=== PATIENT | female | born 1980 | race Caucasian/White ===

== ENCOUNTER 2017-09-14 10:56 | Emergency (ER) | payer OTHER ==
[~2017-09-14] VITALS: Ht 160 cm; Wt 59.5 kg
[2017-09-14 11:02] VITALS: BP 121/90
--- NOTE | 2017-09-14 11:25 | NUR ---
37/F C/O MID CHEST PAIN, PALPITATIONS INTERMITTENTLY X1WK . DENIES N/V/D; SKIN IS PINK/WARM/DRY; AAOX4 WITH EVEN AND STEADY GAIT; LUNGS CLEAR BL; PT DENIES ANY FEVER, CP, SOB, OR COUGH AT THIS TIME; PATIENT STATES PAIN OF 0/10 AT THIS TIME; PATIENT POSITIONED FOR COMFORT; HOB ELEVATED; BEDRAILS UP X2; BED DOWN. ER MD MADE AWARE OF PT STATUS.
--- NOTE | 2017-09-14 11:30 | NUR ---
Patient being evaluated by DR LING at bedside.
--- NOTE | 2017-09-14 11:36 | NUR ---
Note undone in EDM - 09/14/17 at 1137 by [email or web address] 37/F C/O MID CHEST PAIN, PALPITATIONS INTERMITTENTLY X1WK . DENIES N/V/D; SKIN IS PINK/WARM/DRY; AAOX4 WITH EVEN AND STEADY GAIT; LUNGS CLEAR BL; PT DENIES ANY FEVER, CP, SOB, OR COUGH AT THIS TIME; PATIENT STATES PAIN OF 0/10 AT THIS TIME; PATIENT POSITIONED FOR COMFORT; HOB ELEVATED; BEDRAILS UP X2; BED DOWN. ER MD MADE AWARE OF PT STATUS.
[2017-09-14 11:43] VITALS: BP 119/87
--- NOTE | 2017-09-14 11:43 | NUR ---
Patient discharged with v/s stable. Written and verbal after care instructions given and explained. Patient verbalized understanding. Ambulatory with steady gait. All questions addressed prior to discharge. Advised to follow up with PMD.
== END 2017-09-14 11:43 | disposition home or self-care (01) ==
LOC: MED 10:56
DX: R07.89 Other chest pain (principal); F41.9 Anxiety disorder, unspecified
CPT/HCPCS: 81002; 81025; 99283